=== PATIENT | female | born 1945 | race Caucasian/White ===

== ENCOUNTER 2021-02-11 08:03 | Outpatient (CLI) | payer MEDICARE ==
[~2021-02-11] VITALS: Ht 160 cm; Wt 50.5 kg
[2021-02-11] MEDS ORDERED: LIDO700A21 TP (08:45)
[2021-02-11] MEDS ORDERED: PROP40TA PO (08:45)
[2021-02-11] MEDS ORDERED: PANT20TA2 PO (08:45)
[2021-02-11] MEDS ORDERED: ONDA4TAB12 PO (08:45)
[2021-02-11] MEDS ORDERED: MULT-658 PO (08:45)
[2021-02-11 08:46] LABS: BASO # 0.1 x10^3/uL (0.0-0.2); BASO % 1 % (0-3); EOS # 0.3 x10^3/uL (0.0-0.7); EOS % 6 % (0-3); HEMOGLOBIN 14.4 g/dL (12.0-15.5); LYMPH # 1.2 x10^3/uL (1.0-4.8); LYMPH % 23 % (24-48); MEAN CORPUSCULAR HEMOGLOBIN 31 pg (25-35); MEAN CORPUSCULAR HGB CONC 34 g/dL (31-37); MEAN CORPUSCULAR VOLUME 92 fL (79-100); MONO # 0.4 x10^3/uL (0.0-1.1); MONO % 8 % (0-9); NEUT # 3.2 x10^3/uL (1.8-7.7); NEUT % 63 % (31-73); PLATELET COUNT 212 x10^3/uL (140-400); RED BLOOD COUNT 4.67 x10^6/uL (3.50-5.40); RED CELL DISTRIBUTION WIDTH 13.3 % (11.5-14.5); WHITE BLOOD COUNT 5.2 x10^3/uL (4.0-11.0)
[2021-02-11 08:51] VITALS: BP 144/76
[2021-02-11 09:12] LABS: PROTHROMBIN TIME PATIENT 11.9 SEC (11.7-14.0)
[2021-02-11 10:13] VITALS: BP 176/81
[2021-02-11 10:30] VITALS: BP 190/84
[2021-02-11 10:45] VITALS: BP 156/71
[2021-02-11 11:00] VITALS: BP 161/69
[2021-02-11 13:35] LABS: BF CLARITY CLEAR; BF COLOR YELLOW; BF MON % 96 %; BF PMN % 4 %; BF RBC COUNT 1095 /cmm (Not Established); BF SOURCE PLEURAL; BF WBC COUNT 1987 /cmm (Not Established)
--- NOTE | 2021-02-11 14:34 | RAD ---
Left Thoracentesis 02/11/2021 9:57 AM Clinical History: Left pleural effusion. Technique: Relative benefits risks and alternatives were discussed with the patient and/or their rep resentative. Written informed consent was obtained. The patient was placed in seated position. A yesenia eout procedure was performed. Sonographic assessment demonstrates a large pleural effusion. A site for skin entry was selected, and subsequently prepped and draped using sterile barrier technique. 1% lidocaine without epinepherine was administered for local anesthesia to the skin and subcutaenous tissues. A 5 Lao sheathed needle was passed into the pleural space. Clear yellow fluid was aspirated and t he catheter was connected to a vacuum. Approximately 500 cc of fluid were drained. The catheter was r emoved and adequate hemostasis was obtained. A sterile dressing was applied. The patient tolerated t he procedure well, without complications. Impression: Successful ultrasound guided thoracentesis with removal of500 cc of fluid. Electronically signed by: Mac Louis MD (02/11/2021 2:32 PM) [id number]
--- NOTE | 2021-02-12 15:09 | PATHOLOGY ---
Note [facility] Accession Number: [id number] TESTS RESULT FLAG UNITS REF RANGE LAB Clinician Provided Cytology Information No. of containers..01 Other (Miscellaneous) Source: LEFT PLEURAL DIAGNOSIS: LEFT PLEURAL NEGATIVE FOR MALIGNANT CELLS. REACTIVE MESOTHELIAL CELLS AND CHRONIC INFLAMMATORY CELLS PRESENT. THIS INTERPRETATION INCLUDES EVALUATION OF A CELL BLOCK. Signed out by: Lukas Espinoza MD, Pathologist NPI- [id number] Performed by: Kim Monreal, [employer] Operator ([facility]) Gross description: 25ML, YELLOW, CLOUDY /LCS 02/12/2021220 Local FLAG LEGEND: L-Low Normal,H-High Normal,LL-Alert Low,HH-Alert High <-Panic Low,>-Panic High,A-Abnormal,AA-Critical Abnormal Performed at: [facility] [address] [place] [address] Davis Tierney MD, [facility] [address] [place] [address] Luaks Espinoza MD, Performed at: [address], [place], [place] [id number] MD Davis Tierney MD Phone: [phone]
== END 2021-02-11 11:24 | disposition home or self-care (01) ==
LOC: INTRAD 08:03
PROVIDERS: ATTEND Internal Medicine Hematology & Oncology
DX: J90 Pleural effusion, not elsewhere classified (principal); C34.11 Malignant neoplasm of upper lobe, right bronchus or lung; K21.9 Gastro-esophageal reflux disease without esophagitis; F17.210 Nicotine dependence, cigarettes, uncomplicated; Z79.899 Other long term (current) drug therapy; Z90.49 Acquired absence of other specified parts of digestive tract; Z98.890 Other specified postprocedural states
CPT/HCPCS: 32555; 36415; 83615; 84157; 85025; 85610; 89050